=== PATIENT | male | born 1975 | race Caucasian/White ===

== ENCOUNTER 2023-07-27 07:08 | Day surgery (SDC) | payer BC, OTHER ==
[~2023-07-27] VITALS: Ht 190.5 cm; Wt 116.8 kg
[~2023-07-27 07:08] MED LIST: OMEG10002 PO; OMEP-173 PO; THERTAB52 PO
[2023-07-27] MEDS ORDERED: propofoL 200 MG/20 ML VIAL As Ordered ONE (07:25)
[2023-07-27] MEDS ORDERED: LIDOCAINE 2% 100MG/5ML SDV (FOR ANES.) As Ordered ONE (07:25)
[2023-07-27] MEDS ORDERED: fentaNYL 100 MCG/2 ML INJECTION As Ordered ONE (07:25)
[2023-07-27] MEDS: NS 1,000 ML IV ONE (07:32)
[2023-07-27 08:16] VITALS: TEMP 97.1
[2023-07-27 08:40] VITALS: BP 154/96; O2SAT 96
== END 2023-07-27 08:50 | disposition home or self-care (01) ==
LOC: M OPP 07:08
PROVIDERS: ATTEND Internal Medicine Gastroenterology
DX: Z12.11 Encounter for screening for malignant neoplasm of colon (principal); K64.0 First degree hemorrhoids; K44.9 Diaphragmatic hernia without obstruction or gangrene; K22.89 Other specified disease of esophagus; K21.00 Gastro-esophageal reflux disease with esophagitis, without bleeding; K31.89 Other diseases of stomach and duodenum; R12 Heartburn; F17.220 Nicotine dependence, chewing tobacco, uncomplicated; G47.30 Sleep apnea, unspecified; Z99.89 Dependence on other enabling machines and devices; Z79.899 Other long term (current) drug therapy
CPT/HCPCS: 43239; 45380; 88305; J3010